=== PATIENT | male | born 1945 | race Caucasian/White ===

== ENCOUNTER 2016-06-02 06:38 | Day surgery (SDC) | payer OTHER, MEDICARE ==
[2016-06-02] MEDS ORDERED: DEXAMETHASONE SOD PHOSPHATE/PF 10 MG/ML SDV ONE (08:20)
[2016-06-02] MEDS ORDERED: MIDAZOLAM HCL 2 MG/2 ML SINGLE DOSE VIAL ONE (08:20)
[2016-06-02] MEDS ORDERED: ROPIVACAINE HCL 0.5% 30ML VIAL ONE (08:21)
[2016-06-02] MEDS ORDERED: EPINEPHrine 1:1,000 1 MG/1 ML - 30ML VIAL (INJECTION) ONE (08:26)
[2016-06-02 13:03] VITALS: TEMP 98
[2016-06-02 13:05] VITALS: BP 120/76; PULSE 68
[2016-06-02] MEDS ORDERED: ONDANSETRON 4 MG/2 ML VIAL IVPUSH PRN (13:38)
[2016-06-02] MEDS ORDERED: oxyCODONE HCL 5 MG TABLET PO PRN ×2 (13:38)
[2016-06-02] MEDS ORDERED: LACTATED RINGERS SOLUTION 1,000 ML IV SCH (13:45)
--- NOTE | 2016-06-03 17:35 | OP ---
DATE OF OPERATION: 06/02/2016 PREOPERATIVE DIAGNOSIS: Right rotator cuff tear. POSTOPERATIVE DIAGNOSIS: 1. Right shoulder rotator cuff tear, supraspinatus. 2. Right shoulder glenohumeral joint synovitis, labral fraying, arthritis. 3. Right shoulder subacromial impingement with subacromial bursitis and anterior and inferior subacromial spur. OPERATIVE PROCEDURES: 1. Right shoulder arthroscopic rotator cuff repair. 2. Right shoulder arthroscopic extensive debridement glenohumeral joint. 3. Right shoulder arthroscopic subacromial decompression with anterior and inferior acromioplasty. SURGEON: Ana Cortes M.D. MEDICAL COLLECTIONS: Joseluis Chávez ANESTHESIA: Regional. COMPLICATIONS: None. ESTIMATED BLOOD LOSS: Minimal. INDICATION FOR PROCEDURE: The patient is a 71-year-old male with the above findings indicated for operative treatment. Risks, benefits, and alternatives were discussed with patient at length, informed consent was obtained. PROCEDURE: After proper identification of the patient and correct operative site, regional anesthesia was provided by the anesthesiologist. He was then brought to the operating room where timeout procedure was again performed after placing him into the beach chair position with all points of contact well padded. In line cervical position maintained throughout the procedure. Right upper extremity is prepped and draped in usual sterile fashion. Examination under anesthesia showed stable shoulder with full motion at this time. Arthroscopic portals were made both posterior, laterally, and anteriorly. All ports made with skin incision only blunt dissection on the joint capsule. Glenohumeral joint was observed and found to have some early arthritic changes, but no full thickness chondral lesions. Labrum had diffuse fraying and synovitis throughout the shoulder was noted. These areas were debrided extensively. Subscapularis was intact. Biceps tendon was intact. Extraarticular biceps were brought into the joint and also found to be intact with no significant fraying. Infraspinatus was found to be intact. Axillary pouch was free of any loose bodies. Supraspinatus had a large full thickness tear with minimal retraction. This measured anterior to posterior dimensions of approximately 1.5 to 2 cm. Arthroscope was then introduced in the subacromial space, where a severe bursitis is noted. This is debrided with a mechanical shaver as well as ArthroWand. This exposed a large anterior inferior subacromial spur, and an acromioplasty was performed. The rotator cuff tear was again identified in the bursal surface. Also noted in the bursal surface was significant tendinosis of the entire supraspinatus tendon. This was debrided as well as could be. The rotator cuff was then repaired using [employer] Speedbridge double row equivalent repair technique. Two swivel lock anchors were placed at the articular margin after preparing the greater tuberosity for repair. These had fiber tape suture which was passed through the rotator cuff and then crossed over, secured laterally with 2 further swivel lock sutures, attaining again a double row equivalent repair. This was a secure repair. Deep bites were accomplished in the rotator cuff to hope to compensate for the severe tenderness to the rotator cuff. These did appear to have a good bite, and did not pull through. The shoulder was taken through range of motion, there was no further impingement. Rotator cuff was stably fixed, and the tension was appropriate. The wound was irrigated with saline, and each incision was repaired with 4-0 nylon sutures. Sterile dressing, , and sling were placed. Patient was reversed from anesthesia and brought to recovery room in stable condition. He tolerated the procedure well. Jersey Marrero, the temporary administrative assistant, was integral throughout the procedure. Procedure could not have been performed without a skilled operative temporary administrative assistant. ANA CORTES M.D. [id number]
== END 2016-06-02 12:45 | disposition home or self-care (01) ==
LOC: FASU 06:38
PROVIDERS: ATTEND Orthopaedic Surgery Hand Surgery
PROC: 0LB14ZZ Excision of Right Shoulder Tendon, Percutaneous Endoscopic Approach (ICD-10-PCS; principal; 2016-06-02 09:30)
PROC: 0RNJ4ZZ Release Right Shoulder Joint, Percutaneous Endoscopic Approach (ICD-10-PCS; 2016-06-02 09:30)
PROC: 0RBJ4ZZ Excision of Right Shoulder Joint, Percutaneous Endoscopic Approach (ICD-10-PCS; 2016-06-02 09:30)
DX: M75.101 Unspecified rotator cuff tear or rupture of right shoulder, not specified as traumatic (principal); M65.811 Other synovitis and tenosynovitis, right shoulder; M13.811 Other specified arthritis, right shoulder; M75.41 Impingement syndrome of right shoulder; M75.51 Bursitis of right shoulder; M25.711 Osteophyte, right shoulder